=== PATIENT | male | born 1965 | race Caucasian/White ===

== ENCOUNTER 2017-04-08 11:29 | Emergency (ER) | payer MEDICARE ==
[~2017-04-08] VITALS: Ht 182.9 cm; Wt 72.7 kg
[2017-04-08 11:30] VITALS: BP 122/72; PULSE 90; RESP 14; TEMP 97.7; O2SAT 98
[2017-04-08] MEDS ORDERED: LANTUS2P SQ (13:22)
[2017-04-08] MEDS ORDERED: NOVORP2 SQ (13:22)
[2017-04-08] MEDS ORDERED: BACT800T5 PO ×2 (13:35→13:44)
[2017-04-08] MEDS ORDERED: MUPI2%T TOPICAL ×2 (13:35→13:44)
--- NOTE | 2017-04-08 13:44 | PD ---
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 He states that this has never closed since the operation. He noticed a little purulent drainage from the area yesterday. He denies bleeding, pain at the site, fever, chills, nausea, vomiting. He has been fitted for a prosthesis and is awaiting the finish device. He is visiting from [place], will be here for 1 month. PFSH Past Medical History Diabetes: Yes Patient Takes Glucophage: No Integumentary: Yes (CELLULITIS ) Immunizations Current: Yes Tetanus Vaccination: < 5 Years Influenza Vaccination: No Past Surgical History Tonsillectomy: Yes Social History Alcohol Use: No Tobacco Use: No Substance Use: No Allergies-Medications (Allergen,Severity, Reaction): Coded Allergies: No Known Drug Allergies (Verified Allergy, Unknown, 04/08/17) Reported Meds & Prescriptions Reported Meds & Active Scripts Active Reported Novolin R Inj (Insulin Human Regular) 1,000 Unit/10 Ml Vial 0 SQ DIRECTED Sliding Scale As Directed. Lantus Inj (Insulin Glargine) 100 Unit/Ml Inj 20 Unit SQ BID Review of Systems Except as stated in HPI: all other systems reviewed are Neg Physical Exam Narrative GENERAL: Well-nourished, well-developed white male in no acute distress. SKIN: Focused skin assessment warm/dry. HEAD: Normocephalic. EYES: No scleral icterus. No injection or drainage. NECK: Supple, trachea midline. No JVD or lymphadenopathy. CARDIOVASCULAR: Regular rate and rhythm without murmurs, gallops, or rubs. RESPIRATORY: Breath sounds equal bilaterally. No accessory muscle use. GASTROINTESTINAL: Abdomen soft, non-tender, nondistended. MUSCULOSKELETAL: No cyanosis, or edema. FOCUSED RIGHT LOWER EXTREMITY EXAM: The BKA stump is warm and well-perfused. The suture line is well-healed. There is a 1.25 cm area open approximately 0.2 cm. It has a yellowish crust over the top. Below this is pink, well granulated tissue without signs of infection. There is a small surrounding area of localized erythema. No tenderness, warmth, drainage noted. BACK: Nontender without obvious deformity. No CVA tenderness. 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 He states this area has never closed since the surgery but he noticed a little purulent drainage from the area yesterday. He denies bleeding, pain at the site, fever, chills, nausea, vomiting. He has been fitted for a prosthesis and is awaiting the finish device. He is visiting from [place], will be here for 1 month. Patient 's afebrile, nontoxic-appearing on presentation. BKA stump is warm and well perfused. Suture line is well-healed. There is a 125 cm area that is open approximately 0.2 cm it. There is pink granulation tissue with a thin yellow crust over the top. The crust was I&D. No warmth, tenderness, drainage noted. Given his risk factors will treat for an early cellulitis with Bactroban ointment and Bactrim DS twice a day 7 days. Patient was given detailed wound care instructions. We discussed reasons to return to the ED. The patient indicated understanding of instructions and is agreeable to the care plan. He is stable and discharged home. Diagnosis Primary Impression: Wound of right lower extremity Qualified Codes: S81.801A - Unspecified open wound, right lower leg, initial encounter Referrals: General Surgeon Patient Instructions: Cellulitis (ED), General Instructions Additional Instructions: Rest, hydrate. Do not change the dressing for 24 hours. You may bathe normally. Do not submerge the wound. After bathing pat of wound dry. Allow the wound to air dry for 10-15 minutes. Apply a thin layer of antibiotic ointment and a clean, dry dressing. Take the antibiotics as they are prescribed, even if your symptoms resolved. Utilize [id number] pain medications, as described on the label, as needed. Follow-up with your primary care provider. Return to the ED for worsening symptoms or any urgent or emergent medical condition. Med/Other Pt SpecificInfo: Prescription(s) given Scripts Sulfamethoxazole-Trimethoprim (Bactrim DS) 800-160 Mg Tab 1 TAB PO BID for Infection, #14 TAB 0 Refills Prov: Bozena Forte MD 04/08/17 Mupirocin Topical (Bactroban Topical) 22 Gm Cream 1 APPLIC TOPICAL TID for Mgmt Bacterial Infection for 5 Days, #1 TUBE 0 Refills Prov: Bozena Forte MD 04/08/17 Disposition: 01 DISCHARGE HOME Condition: Stable Aracelis Nash Apr 08, 2017 13:44
== END 2017-04-08 14:11 | disposition home or self-care (01) ==
LOC: NEPA 11:29
DX: T87.81 Dehiscence of amputation stump (principal); E11.9 Type 2 diabetes mellitus without complications; Z79.4 Long term (current) use of insulin; Z89.511 Acquired absence of right leg below knee
CPT/HCPCS: 99284